=== PATIENT | female | born 1980 | race Caucasian/White ===

== ENCOUNTER 2021-05-27 06:56 | Emergency (ER) | payer OTHER ==
[~2021-05-27] VITALS: Ht 162.6 cm; Wt 66.7 kg
[2021-05-27] MEDS ORDERED: ACETAMINOPHEN325 M1 PO ×2 (07:10)
[2021-05-27] MEDS ORDERED: SULFAMETHOXAZO1 EACH PO ×2 (07:10)
[2021-05-27] MEDS ORDERED: AMOX TR-K CLV1 EAC1 PO ×2 (07:10)
== END 2021-05-27 10:25 | disposition home or self-care (01) ==
LOC: ED 06:56
DX: O00.90 Unspecified ectopic pregnancy without intrauterine pregnancy (principal); F17.200 Nicotine dependence, unspecified, uncomplicated
CPT/HCPCS: 76801; 76817; 80053; 81001; 84702; 85025; 96374; 99284-25; J2405

== ENCOUNTER 2021-05-28 18:49 | Emergency (ER) | payer OTHER ==
[~2021-05-28] VITALS: Ht 162.6 cm; Wt 66.7 kg
[~2021-05-28 18:49] MED LIST: ACETAMINOPHEN325 M1 PO; AMOX TR-K CLV1 EAC1 PO; SULFAMETHOXAZO1 EACH PO
--- OUTSIDE RECORDS SUMMARY | 2021-05-28 18:56 | XMS ---
PreManage Notification: AL JONES Security Lead Project Manager Events No recent Security Events currently on file CRITERIA MET - [facility] - 2 Visits in 30 Days CARE PROVIDERS [facility]: Federal Qualified 05/24/2021-[facility] ([facility]) PHONE: [phone] KAY WESLEY Nurse Practitioner 05/24/2021-Current PHONE: [phone] IVETTE ARDON Netsuite Consultant/Route Delivery Service Driver Current PHONE: [phone] Marie has no Care Guidelines for this patient. E.D. VISIT COUNT (12 MO.) 1 [facility] 2 D[facility]OT[facility] Taylor TOTAL 3 NOTE: Visits indicate total known visits. ED/UCC VISIT TRACKING (12 MO.) 05/28/2021 18:49 [facility] [place] TYPE: Emergency COMPLAINT: - RT SIDE PELVIC PAIN 05/27/2021 06:56 [facility] [place] TYPE: Emergency COMPLAINT: - ABDOMINAL PAIN 01/16/2021 10:31 [facility] [place] TYPE: Emergency DIAGNOSES: - MENTAL HEALTH - Cystitis, unspecified with hematuria INPATIENT VISIT TRACKING (12 MO.) No inpatient visits to display in this time frame [email or web address]
== END 2021-05-28 21:52 | disposition home or self-care (01) ==
LOC: ED 18:49
DX: O03.9 Complete or unspecified spontaneous abortion without complication (principal); R10.2 Pelvic and perineal pain; N83.8 Other noninflammatory disorders of ovary, fallopian tube and broad ligament; F17.200 Nicotine dependence, unspecified, uncomplicated
CPT/HCPCS: 76801; 76817; 84702; 85025; 99284-25